=== PATIENT | female | born 1945 | race Caucasian/White ===

== ENCOUNTER → 2023-10-05 | Outpatient (CLI) | payer OTHER ==
[~2023-10-05] MED LIST: CIPRO500 MG PO; RESTASIS 0.4 M0.4 M1 OP; TEARS NATURALE15 M1 OPH
[2023-10-05 11:39] LABS: HEMATOCRIT 46.8 % (37.0-47.0); MEAN CELL VOLUME 97.5 fl (81.0-99.0); MEAN CORPUSCULAR HGB 30.2 pg (27.0-31.0); MEAN PLATELET VOLUME 9.5 fl (9.6-12.3); RED BLOOD COUNT 4.8 10*6/uL (4.10-5.10); RED CELL DISTRI WIDTH 12.4 % (0-14.5); WHITE BLOOD COUNT 9.6 10*3/uL (4.8-10.8)
[2023-10-05 12:07] LABS: ALKALINE PHOSPHATASE 82 U/L (46-116); BUN 14 mg/dl (9-23); CHLORIDE 111 mmol/L (98-107); CHOLESTEROL 134 mg/dL (<200); CPK 29 U/L (34-171); FREE T4 1.26 ng/dl (0.89-1.76); LDL CHOLESTEROL 62 mg/dL (9-159); POTASSIUM 3.9 mmol/L (3.4-5.1); SGPT/ALT 8 U/L (5-49); TOTAL PROTEIN 6.8 gm/dL (6.0-8.0); TRIGLYCERIDES 110 mg/dl (<150)
[2023-10-05 12:58] LABS: VITAMIN D, 25-HYDROXY 7.6 ng/mL (30-100)
== END | disposition home or self-care (01) ==
LOC: LAB 11:12
PROVIDERS: ATTEND Family Medicine
DX: E78.00 Pure hypercholesterolemia, unspecified (principal); I10 Essential (primary) hypertension; R53.83 Other fatigue; R53.1 Weakness; I63.9 Cerebral infarction, unspecified; E55.9 Vitamin D deficiency, unspecified; D64.9 Anemia, unspecified